=== PATIENT | female | born 1985 | race Caucasian/White ===

== ENCOUNTER 2017-04-29 20:50 | Inpatient (IN) | payer OTHER ==
[~2017-04-29] VITALS: Ht 157.5 cm; Wt 64.9 kg
[2017-04-29] MEDS ORDERED: GLUCAGON 1 MG INJ IV STA (21:13)
[2017-04-29] MEDS ORDERED: SOD CHLORIDE 0.9% 1,000 ML IV STA (21:13)
[2017-04-29 21:40] LABS: BASOPHILS % 0.5 % (0.0-2.0); EOSINOPHILS # 0.2 10^3/ul (0.0-0.5); EOSINOPHILS % 2.4 % (0.0-7.0); HEMATOCRIT 36.1 % (37.0-47.0); HEMOGLOBIN 12.2 g/dl (12.0-16.0); MEAN CORPUSCULAR HEMOGLOBIN 30.7 pg (29.0-33.0); MEAN CORPUSCULAR HGB CONC 33.8 g/dl (32.0-37.0); MEAN CORPUSCULAR VOLUME 90.9 fl (82.0-101.0); MEAN PLATELET VOLUME 10.4 fl (7.4-10.4); MONOCYTE # 0.8 10^3/ul (0.3-0.9); NEUTROPHILS % 46.8 % (39.0-77.0); PLATELET COUNT 376 10^3/UL (140-415); RED BLOOD COUNT 3.97 10^6/ul (4.20-5.40); RED CELL DISTRIBUTION WIDTH 12.9 % (11.5-14.5); WHITE BLOOD COUNT 7.6 10^3/ul (4.8-10.8)
[2017-04-29 22:06] LABS: ALANINE AMINOTRANSFERASE 34 IU/L (13-69); ALBUMIN 4.3 g/dl (3.3-4.9); ALBUMIN/GLOBULIN RATIO 1.38; ALKALINE PHOSPHATASE 51 IU/L (42-121); ANION GAP 14 (8-16); ASPARTATE AMINO TRANSFERASE 23 IU/L (15-46); BILIRUBIN,INDIRECT 0.5 mg/dl (0-1.1); BILIRUBIN,TOTAL 0.5 mg/dl (0.2-1.3); BLOOD UREA NITROGEN 29 mg/dl (7-20); CALCIUM 9.4 mg/dl (8.4-10.2); CARBON DIOXIDE 22 mmol/L (21-31); CHLORIDE 106 mmol/L (97-110); CREATININE 0.87 mg/dl (0.44-1.00); GLUCOSE 116 mg/dl (70-220); POTASSIUM 4.1 mmol/L (3.5-5.1); SODIUM 138 mmol/L (135-144); TOTAL PROTEIN 7.4 g/dl (6.1-8.1)
[2017-04-29 22:10] LABS: ACETAMINOPHEN < 10.0 ug/ml (10.0-30.0); ETHANOL < 10.0 mg/dl; SALICYLATE < 1.0 mg/dl (5.0-30.0)
--- NOTE | 2017-04-29 22:26 | RADRPT ---
PROCEDURE: XR Chest. CLINICAL INDICATION: Altered level of consciousness TECHNIQUE: Single frontal view of the chest was obtained. COMPARISON: None. FINDINGS: The cardiomediastinal silhouette is normal size. Pulmonary vasculature is within normal limits. Th e lungs are clear. No signs of pleural fluid or pneumothorax are seen. The osseous structures and soft tissues are unre markable. IMPRESSION: No evidence for active cardiopulmonary disease. RPTAT: HBST .Juni Saavedra MD, MD Date Time Electronically viewed and signed by .Juni Saavedra MD, on 04/29/2017 22:25 .T/
[2017-04-29 23:00] VITALS: TEMP 98.3
[2017-04-29] MEDS ORDERED: SOD CHLORIDE 0.9% 1,000 ML IV SCH (23:10)
--- NOTE | 2017-04-29 23:10 | ERA ---
ER Documentation Chief Complaint Date/Time DATE: 04/29/17 TIME: 23:01 Chief Complaint Per brother pt disolved 100 BP pilss in water and drank them @ 2000 HPI Patient is a 31-year-old female who says that he dissolved metoprolol into a big glass of water and drink it. She said that she does know how many she took but she says she took "a lot". Brother states it was approximately 100 caps. Patient says she was not suicidal or is homicidal. Patient is not a good historian and only give limited history. She says she took these around 2-1/2 hours ago. But she is not sure. She denies any pain vomiting. Denies any psych history. Patient is making rude comments during my examination and history taking. She has been quite sarcastic ROS All systems reviewed and are negative except as per history of present illness. Medications Home Meds No Active Prescriptions or Reported Meds Allergies Allergies: Coded Allergies: No Known Allergy (Unverified , 04/29/17) PMhx/Soc Medical and Surgical Hx: pt denies Medical Hx, pt denies Surgical Hx Hx Alcohol Use: Yes Hx Substance Use: No Hx Tobacco Use: No Smoking Status: Never smoker FmHx Family History: No coronary disease Physical Exam Vitals Vital Signs Date Time Temp Pulse Resp B/P Pulse Ox O2 Delivery O2 Flow Rate FiO2 04/29/17 21:00 109/69 04/29/17 20:55 98.0 68 24 84/60 99 Room Air 04/29/17 20:54 97.9 69 24 91/50 99 Physical Exam Const: Well-developed, well-nourished Head: Atraumatic, normocephalic Eyes: Normal Conjunctiva, PERRLA, EOMI, normal sclera, no nystagmus ENT: Normal External Ears, Nose and Mouth, moist mucus membranes. Neck: Full range of motion. No meningismus, no lymphadenopathy. Resp: Clear to auscultation bilaterally, no wheezing, rhonchi, rales Cardio: Regular rate and rhythm, heart rate 65, no murmurs, S1 S2 present Abd: Soft, non tender x 4, non distended. Normal bowel sounds, no guarding or rebound, no pulsitile abdominal masses or bruits Skin: No petechiae or rashes, no ecchymosis , no maculopapular rash Back: No midline or flank tenderness Ext: No cyanosis, or edema, FROM x 4, normal inspection, neurovascularly intact x 4 Neur: Awake and alert, STR 5/5 x 4, sensation intact x 4, no focal findings, cerebellum intact Psych: Sarcastic attitude, denies suicidal ideation] Result Diagram: 04/29/17210904/29/172109 Results 24 hrs Laboratory Tests Test 04/29/17 21:10 04/29/17 21:12 White Blood Count 7.610^3/ul Red Blood Count 3.9710^6/ul Hemoglobin 12.2g/dl Hematocrit 36.1% Mean Corpuscular Volume 90.9fl Mean Corpuscular Hemoglobin 30.7pg Mean Corpuscular Hemoglobin Concent 33.8g/dl Red Cell Distribution Width 12.9% Platelet Count 28159^3/UL Mean Platelet Volume 10.4fl Neutrophils % 46.8% Lymphocytes % 39.0% Monocytes % 11.0% Eosinophils % 2.4% Basophils % 0.5% Nucleated Red Blood Cells % 0.0/100WBC Neutrophils # (Manual) 3.610^3/ul Lymphocytes # 3.010^3/ul Monocytes # 0.810^3/ul Eosinophils # 0.210^3/ul Basophils # 0.010^3/ul Nucleated Red Blood Cells # 0.010^3/ul Sodium Level 138mmol/L Potassium Level 4.1mmol/L Chloride Level 106mmol/L Carbon Dioxide Level 22mmol/L Anion Gap 14 Blood Urea Nitrogen 29mg/dl Creatinine 0.87mg/dl Glucose Level 116mg/dl Calcium Level 9.4mg/dl Total Bilirubin 0.5mg/dl Direct Bilirubin 0.00mg/dl Indirect Bilirubin 0.5mg/dl Aspartate Amino Transf (AST/SGOT) 23IU/L Alanine Aminotransferase (ALT/SGPT) 34IU/L Alkaline Phosphatase 51IU/L Total Protein 7.4g/dl Albumin 4.3g/dl Globulin 3.10g/dl Albumin/Globulin Ratio 1.38 Salicylates Level < 1.0mg/dl Acetaminophen Level < 10.0ug/ml Ethyl Alcohol Level < 10.0mg/dl Bedside Glucose 121mg/dL Current Medications Medications (Trade) Dose Ordered Sig/Agata Route PRN Reason Start Time Stop Time Status Last Admin Dose Admin Sodium Chloride (NS) 1,000 ml @ 1,000 mls/hr Q1H STAT IV 04/29/17 21:13 04/29/17 22:12 DC 04/29/17 22:04 Glucagon (Glucagen) 5 mg ONCE STAT IV 04/29/17 21:13 04/29/17 21:17 DC 04/29/17 22:21 Procedures/MDM PROCEDURE: XR Chest. CLINICAL INDICATION: Altered level of consciousness TECHNIQUE: Single frontal view of the chest was obtained. COMPARISON: None. FINDINGS: The cardiomediastinal silhouette is normal size. Pulmonary vasculature is within normal limits. The lungs are clear. No signs of pleural fluid or pneumothorax are seen. The osseous structures and soft tissues are unremarkable. IMPRESSION: No evidence for active cardiopulmonary disease. RPTAT: HBST .Juni Saavedra MD, Date Time Electronically viewed and signed by .Juni Saavedra MD, on 04/29/2017 22:25 .T/ CC: JAROCHO ZULUAGA DO EKG: Rate/Rhythm: Normal sinus rhythm heart rate 69 QRS, ST, QT: NORMAL [place], QRS, QT] Impression: NORMAL EKG Family was sent back home to find the bottles of metoprolol however they are not found. He did fine bottle of metformin, amlodipine which are nearly empty. The patient states she did not take those. The patient will not quantify how many pills she take a multiple questioning. She says I do not know it was a lot. She says she threw the empty bottle in trash but the family cannot find the bottle. The patient was given 5 mg of IV glucagon. Her blood pressure has been running around systolic of 100 and she has had a heart rate in the low to mid 60s. Patient had 2 episodes of vomiting in the ER that is nonbilious and bloody. We will admit the patient for overdose on beta luis armando in case her blood pressure or heart rate drops too low. She will need psych evaluation and likely transfer to a psych hospital once she is stable and clinically cleared.. Departure Diagnosis: Primary Impression: Intentional drug overdose Qualified Code: T50.902A - Intentional drug overdose, initial encounter Additional Impression: Suicide attempt by beta luis armando overdose Qualified Code: T44.7X2A - Suicide attempt by beta-adrenergic antagonist overdose, initial encounter Condition: Stable JAROCHO ZULUAGA DO Apr 29, 2017 23:10
[2017-04-29] MEDS ORDERED: ONDANSETRON 4 MG INJ IV PRN (23:30)
[2017-04-29] MEDS ORDERED: ACETAMINOPHEN 325 MG TAB PO PRN (23:30)
[2017-04-30] VITALS (8 sets, daily range): BP systolic 97–107; BP diastolic 55–60; PULSE 70–78; RESP 16–18; Ht 157.5 cm; Wt 64.9 kg
[2017-04-30] MEDS ORDERED: SOD CHLORIDE 0.9% 1,000 ML IV SCH (01:20)
[2017-04-30] MEDS ORDERED: DOCUSATE SODIUM 100 MG CAP PO PRN (01:30)
[2017-04-30] MEDS ORDERED: ONDANSETRON 4 MG INJ IV PRN (01:30)
[2017-04-30] MEDS ORDERED: BISACODYL (EC) 5 MG TAB PO PRN (01:30)
[2017-04-30] MEDS ORDERED: ACETAMINOPHEN 325 MG TAB PO PRN (01:30)
[2017-04-30] MEDS ORDERED: NACL 0.9% 3 ML SYG IV SCH (01:30)
[2017-04-30 03:46] LABS: CREATINE KINASE 72 IU/L (23-200)
[2017-04-30 03:59] LABS: CK-MB 0.87 ng/ml (0.0-2.4)
[2017-04-30 04:15] LABS: TROPONIN-I < 0.012 ng/ml (0.00-0.12)
[2017-04-30 08:07] LABS: CREATINE KINASE 72 IU/L (23-200)
[2017-04-30 08:27] LABS: TROPONIN-I < 0.012 ng/ml (0.00-0.12)
[2017-04-30] MEDS ORDERED: FAMOTIDINE 20 MG TAB PO SCH (09:00)
--- NOTE | 2017-04-30 09:18 | HP ---
Date/Time of Note Date/Time of Note DATE: 04/30/17 TIME: 09:10 Assessment/Plan VTE Prophylaxis VTE Prophylaxis Intervention: SCD's Lines/Catheters IV [facility] Peripheral IV Assessment/Plan Chief Complaint/Hosp Course This is a 30-year-old female being admitted to the telemetry floor for: #1 beta-luis armando intoxication: Patient was given glucagon 5 mg IV in the ED. At the current time she is sinus rhythm at approximately 7 bpm. Blood pressure is within acceptable values. Will continue to monitor patient's rhythm on telemetry. Further intervention will be implemented as indicated. Will order echocardiogram. Will consult cardiology if indicated as well. #2 behavioral problem: Patient currently is not cooperative during the examination. She is easily arousable however she is very rude and sarcastic in her comments. Will attempt to obtain a better history from her family as her clinical status improves. Patient denies any suicidal or homicidal ideation as per ED physician documentation. Will obtain a psych consult if indicated #3 DVT and GI prophylaxis: SCDs, acid luis armando Further treatment strategy will be implemented as per the clinical course Problems: HPI/ROS Admit Date/Time Admit Date/Time Apr 29, 2017 at 23:12 Hx of Present Illness Chief complaint: Possible beta-luis armando overdose The history was obtained from the ED physician documentation as patient herself is a poor historian and not providing adequate detail and not being cooperative. The patient is a 31-year-old female who says that he dissolved metoprolol into a big glass of water and drink it. She said that she does know how many she took but she says she took "a lot". Brother states it was approximately 100 caps. Patient says she was not suicidal or is homicidal. She says she took these around 2-1/2 hours ago. But she is not sure. She denies any pain vomiting. Denies any psych history. Upon my examination patient was somnolent however she was easily arousable. She however was not cooperative in giving a proper history except for the fact that she smokes. Allergies: Iodine Medications: See KLAUDIA MALDONADO Subjective hx not possible: other (Patient not cooperative though she is easily arousable) PMH/Family/Social Past Medical History Unable to obtain as patient is not cooperative though she is easily arousable Past Surgical History Unable to obtain as patient is not cooperative though she is easily arousable Family History Significant Family History: other (Unable to obtain as patient is not cooperative though she is easily arousable) Social History Unable to obtain as patient is not cooperative though she is easily arousable Alcohol Use: none Smoking Status: Current every day smoker Drug Use: none Exam/Review of Systems Vital Signs Vitals Vital Signs Date Time Temp Pulse Resp B/P Pulse Ox O2 Delivery O2 Flow Rate FiO2 04/30/17 08:29 71 04/30/17 07:57 98.6 16 97/60 98 04/30/17 02:15 Room Air Exam Exam General: Patient is easily arousable, however she is not cooperative in she is very rude unable to adequately assess as patient is uncooperative. She is easily arousable however she is HEENT: Atraumatic, normocephalic. The pupils are equal, round and reactive. Extraocular motor are intact Neck: Supple with full range of motion. No rigidity or meningismus Chest: Nontender Lungs: Clear to auscultation bilaterally no crackles rales or wheezing Heart: Normal S1-S2, Regular rhythm and rate. No overt murmurs appreciated Abdomen: Soft , nontender, nondistended , bowel sounds are present. No guarding no rebound tenderness , No masses or organomegaly. No costovertebral temporal angle mass Extremities: Normal to inspection, no edema no cyanosis Neurologic: Unable to assess as patient is not cooperative, she is easily arousable and alert when awake. Additional Comments nuclear monitoring technician reading shows sinus rhythm at approximately 70 bpm. PROCEDURE: XR Chest. CLINICAL INDICATION: Altered level of consciousness TECHNIQUE: Single frontal view of the chest was obtained. COMPARISON: None. FINDINGS: The cardiomediastinal silhouette is normal size. Pulmonary vasculature is within normal limits. The lungs are clear. No signs of pleural fluid or pneumothorax are seen. The osseous structures and soft tissues are unremarkable. IMPRESSION: No evidence for active cardiopulmonary disease. RPTAT: HBST .Juni Saavedra MD, Date Time Electronically viewed and signed by .Juni Saavedra MD, on 04/29/2017 22:25 .T/ CC: JAROCHO ZULUAGA DO EKG: Rate/Rhythm: Normal sinus rhythm heart rate 69 QRS, ST, QT: NORMAL IN, QRS, QT] As per ED physician documentation Labs Result Diagram: 04/29/17210904/29/172109 Medications Medications Current Medications Sodium Chloride 1,000 ml @ 80 mls/hr [id number] IV Last administered on 04/29/17t 23:48; Admin Dose 80 MLS/HR; Start 04/29/17 at 23:10; Stop 04/30/17 at 11:39 Sodium Chloride (NS) 1,000 ml @ 70 mls/hr [id number] IV ; Start 04/30/17 at 01:20 Ondansetron HCl (Zofran Inj) 4 mg Q6H PRN IV NAUSEA AND/OR VOMITING; Start 04/30 at 01:30 Acetaminophen (Tylenol Tab) 650 mg Q6H PRN PO PAIN LEVEL 1-3 OR FEVER; Start at 01:30 Docusate Sodium (Colace) 100 mg Q12H PRN PO CONSTIPATION; Start 04/30/17 at 01: 30 Bisacodyl (Dulcolax) 5 mg DAILY PRN PO CONSTIPATION; Start 04/30/17 at 01:30 Famotidine (Pepcid) 20 mg Q12 PO ; Start 04/30/17 at 09:00 SALO VILLA Apr 30, 2017 09:18
--- NOTE | 2017-04-30 13:21 | CONS ---
Date/Time of Note Date/Time of Note DATE: 04/30/17 TIME: 13:16 Assessment/Plan Assessment/Plan Additional Assessment/Plan Possible beta-luis armando overdose -Patient's heart rate on telemetry remains in the 60s-70s with no heart block seen. As per ER note, heart rate was in the 60s in the emergency room. I am unsure if she actually took beta-luis armando. We will continue telemetry monitoring. No need for pacemaker at the current time. If heart rhythm remained stable within the next 24 hours, no further inpatient cardiac workup needed Consultation Date/Type/Reason Admit Date/Time Apr 29, 2017 at 23:12 Type of Consultation: cv Reason for Consultation Possible beta-luis armando overdose Hx of Present Illness This is a 31-year-old female with no significant past medical history who has per H&P and medical records, took unknown number of pills yesterday. Patient is not sure what the medication is but thinks possibly metoprolol. On review of medical records, family also not sure and pill bottle was not found. Afterwards, patient with symptoms of nausea and not feeling well and brought to the emergency room. As per the ER records, heart rate was in the 60s and given IV fluids and glucagon. She currently feels much better. Denies any dizziness or lightheadedness, shortness of breath or chest pain. She is not very forthcoming with information, and questions are asked multiple times. 12 point review of systems was performed with all pertinent positives and negatives mentioned above and all else is negative Past Medical History Medical History: no pertinent history Family History Significant Family History: no pertinent family hx Social History Alcohol Use: none Smoking Status: Current every day smoker Drug Use: none Exam/Review of Systems Vital Signs Vitals Vital Signs Date Time Temp Pulse Resp B/P Pulse Ox O2 Delivery O2 Flow Rate FiO2 04/30/17 12:20 77 04/30/17 07:57 98.6 16 97/60 98 04/30/17 02:15 Room Air Exam Not forthcoming with information when questions are asked, no apparent distress Constitutional: alert, oriented Head: normocephalic Respiratory: clear to auscultation, normal air movement Cardiovascular: other (S1-S2 heard), regular rate and rhythm Gastrointestinal: bowel sounds, non-tender, other (No guarding), soft Extremities: other (No edema) Results Result Diagram: 04/29/17210904/29/172109 Results 24 hrs Laboratory Tests Test 04/29/17 21:10 04/29/17 21:12 04/30/17 03:10 04/30/17 07:11 White Blood Count 7.6 Red Blood Count 3.97 L Hemoglobin 12.2 Hematocrit 36.1 L Mean Corpuscular Volume 90.9 Mean Corpuscular Hemoglobin 30.7 Mean Corpuscular Hemoglobin Concent 33.8 Red Cell Distribution Width 12.9 Platelet Count 376 Mean Platelet Volume 10.4 Neutrophils % 46.8 Lymphocytes % 39.0 Monocytes % 11.0 Eosinophils % 2.4 Basophils % 0.5 Nucleated Red Blood Cells % 0.0 Neutrophils # (Manual) 3.6 Lymphocytes # 3.0 H Monocytes # 0.8 Eosinophils # 0.2 Basophils # 0.0 Nucleated Red Blood Cells # 0.0 Sodium Level 138 Potassium Level 4.1 Chloride Level 106 Carbon Dioxide Level 22 Anion Gap 14 Blood Urea Nitrogen 29 H Creatinine 0.87 Glucose Level 116 Calcium Level 9.4 Total Bilirubin 0.5 Direct Bilirubin 0.00 Indirect Bilirubin 0.5 Aspartate Amino Transf (AST/SGOT) 23 Alanine Aminotransferase (ALT/SGPT) 34 Alkaline Phosphatase 51 Total Protein 7.4 Albumin 4.3 Globulin 3.10 Albumin/Globulin Ratio 1.38 Salicylates Level < 1.0 L Acetaminophen Level < 10.0 L Ethyl Alcohol Level < 10.0 Bedside Glucose 121 Creatine Kinase 72 72 Creatine Kinase Index 1.2 1.3 Creatinine Kinase MB (Mass) 0.87 0.90 Troponin I < 0.012 < 0.012 Medications Medications Current Medications Sodium Chloride (NS) 1,000 ml @ 70 mls/hr [id number] IV ; Start 04/30/17 at 01:20 Ondansetron HCl (Zofran Inj) 4 mg Q6H PRN IV NAUSEA AND/OR VOMITING; Start 04/30 at 01:30 Acetaminophen (Tylenol Tab) 650 mg Q6H PRN PO PAIN LEVEL 1-3 OR FEVER; Start at 01:30 Docusate Sodium (Colace) 100 mg Q12H PRN PO CONSTIPATION; Start 04/30/17 at 01: 30 Bisacodyl (Dulcolax) 5 mg DAILY PRN PO CONSTIPATION; Start 9/6/17 at 01:30 Famotidine (Pepcid) 20 mg Q12 PO Last administered on 04/30/17t 09:37; Admin Dose 20 MG; Start 04/30/17 at 09:00 Procedures Procedures ECG done last night demonstrated sinus rhythm at 69 bpm, normal QRS duration, no significant ischemic ST abnormalities Jacek Nunez DO Apr 30, 2017 13:21
--- NOTE | 2017-04-30 15:30 | RADRPT ---
Echocardiogram Report Patient Name: SYLVIA DEXTER Gender: Female Date: 1985 Study Date: 30-Apr-2017 Media Analyst: Otoniel Malave [facility] Location: 5539 Ref. Physician: SALO VILLA Quality: Good Procedures: Transthoracic echocardiogram with complete 2D, M-Mode, and doppler examination. Indications: suspect beta luis armando overdose. 2D/M Mode Doppler Measurement Value Normal Ranges Measurement Value Normal Ranges LVIDd 2D 4.0 3.5 - 5.6 cm AV Peak Naeem 1.2 m/sec LVIDs 2D 2.5 2.1 - 4.1 cm AV Peak PG 6.2 mmHg LVPWd 2D 0.9 0.6 - 1.1 cm LVOT Peak Naeem 0.7 m/sec IVSd 2D 0.9 0.6 - 1.1 cm LVOT Peak PG 1.9 mmHg AoR Diam 2D 2.4 2.0 - 3.7 cm MV E Peak Naeem 0.7 m/sec EDV 2D 71.5 cm3 MV A Peak Naeem 0.4 m/sec ESV 2D 15.1 cm3 MV E/A 1.7 LA Dimen 2D 3.1 2.3 - 4.0 cm MV Decel Time 192 msec MV Decel [place] 4 MV E/A 1.7 TR Peak Naeem 1.8 m/sec TR Peak PG 12.7 mmHg RVSP 16.0 mmHg Findings Left Ventricle: Normal left ventricular systolic function. Normal left ventricular cavity size. Normal left ventricular wall thickness. Ejection fraction is visually estimated at 60 %. Tissue Doppler/Mitral Doppler indices are within normal limits. Right Ventricle: Normal right ventricular size. Normal right ventricular systolic function. Left Atrium: The left atrium is normal in size. Right Atrium: The right atrium is normal in size. Mitral Valve: Mitral valve leaflets appear mildly thickened. Mild mitral annular calcification. Mild mitral valve regurgitation. Aortic Valve: Normal appearance of the aortic valve. No significant aortic stenosis or insufficiency. Tricuspid Valve: Normal appearance of the tricuspid valve. Estimated peak PA systolic pressure 16 mmHg. There is mild tricuspid regurgitation. Pulmonic Valve: Normal pulmonic valve appearance. There is trace pulmonic regurgitation. Pericardium: Normal pericardium with no significant pericardial effusion. Aorta: Normal aortic root. IVC: Normal size and normal respiratory collapse consistent with normal right atrial pressure. Conclusions 1.Normal left ventricular systolic function. Normal left ventricular cavity size. Normal left ventricular wall thickness. Ejection fraction is visually estimated at 60 %. Tissue Doppler/Mitral Doppler indices are within normal limits. 2.Normal right ventricular size. Normal right ventricular systolic function. 3.The left atrium is normal in size. 4.The right atrium is normal in size. 5.Mild mitral valve regurgitation. 6.No significant aortic stenosis or insufficiency. 7.Estimated peak PA systolic pressure 16 mmHg. There is mild tricuspid regurgitation. 8.Normal pericardium with no significant pericardial effusion. Electronically Signed By: Jacek Nunez 30-Apr-2017 15:28:57 -0700 Patient Name: SYLVIA DEXTER Study Date: 30-Apr-2017 [id number]
--- NOTE | 2017-04-30 16:44 | QN ---
Documentation Comment S: Patient seen and examined this am. When questioned she was very aloof during the conversation. Denies SI as reason took medication. States she does not know why she took her mother medication but did not plan on taking it again. Denies any chest discomfort, shortness of breath, nausea, vomiting, or abdominal issues. HR has remained stable. O: VSS General- NAD, awake and alert CVS- regular rate and rhythm, no murmurs Lungs- CTA b/l. no wheezes Abd- soft, nontender, nondistended Ext- moving all extremities, no cyanosis, edema, or clubbing A/P 1. Metoprolol overdose? - Cardiology input appreciated and will continue monitoring for 24 hours total - No need for pacer at this time - HR has been in the 70s - If remains stable will d/c tmrw LUIS Desai MD Apr 30, 2017 16:43
--- NOTE | 2017-04-30 17:58 | DS ---
Date/Time of Note Date/Time of Note DATE: 04/30/17 TIME: 17:52 Discharge Summary Admission/Discharge Info Admit Date/Time Apr 29, 2017 at 23:12 Discharge Date/Time Patient eloped on Apr 30 at 1610 Discharge Diagnosis Medication overdose, ?Beta luis armando Patient Condition: Good Consults Cardiology Hx of Present Illness Chief complaint: Possible beta-luis armando overdose The history was obtained from the ED physician documentation as patient herself is a poor historian and not providing adequate detail and not being cooperative. The patient is a 31-year-old female who says that he dissolved metoprolol into a big glass of water and drink it. She said that she does know how many she took but she says she took "a lot". Brother states it was approximately 100 caps. Patient says she was not suicidal or is homicidal. She says she took these around 2-1/2 hours ago. But she is not sure. She denies any pain vomiting. Denies any psych history. Upon my examination patient was somnolent however she was easily arousable. She however was not cooperative in giving a proper history except for the fact that she smokes. Allergies: Iodine Medications: See [facility] This is a 31-year-old female with no significant past medical history who has per H&P and medical records, took unknown number of pills yesterday. Patient is not sure what the medication is but thinks possibly metoprolol. On review of medical records, family also not sure and pill bottle was not found. Afterwards, patient with symptoms of nausea and not feeling well and brought to the emergency room. As per the ER records, heart rate was in the 60s and given IV fluids and glucagon. She currently feels much better. Denies any dizziness or lightheadedness, shortness of breath or chest pain. She is not very forthcoming with information, and questions are asked multiple times. When interviewed later in the day patient admits to taking mothers metoprolol but unsure why she did. She denies any suicidal ideations and does not plan to take the medication again. Patient was evaluated by Cardiology who did not believe patient needed any pacemaker intervention since heart rate remained stable in the 70s throughout the day. Patient was able to tolerate diet and denied any chest pain, palpitations, LOC, shortness of breath, dizziness, or abdominal issues. She later left the floor and nurse called stating unsure where the patient went and called security as well as nursing grounds supervisor. The patient later returned and was told since she had eloped she would need to go to the ED to get readmitted. Patient refused to leave her room but was informed of the policy and told it was recommended to go to the ED. She states she felt well enough to go home but if she became symptomatic she would return to the ED. No prescriptions or instructions were given to the patient. Home Meds No Active Prescriptions or Reported Meds Follow-up Plan Patient instructed to go to the ED but refused and advised to go to the ED then if she was experiencing palpitations, LOC, chest pain, shortness of breath, or dizziness. Primary Care Provider Care Physician No Primary Time spent on discharge: < 30 minutes Pending Labs Laboratory Tests Test 04/29/17 21:10 04/29/17 21:12 04/30/17 03:10 04/30/17 07:11 White Blood Count 7.610^3/ul (4.8-10.8) Red Blood Count 3.9710^6/ul (4.20-5.40) Hemoglobin 12.2g/dl (12.0-16.0) Hematocrit 36.1% (37.0-47.0) Mean Corpuscular Volume 90.9fl (82.0-101.0) Mean Corpuscular Hemoglobin 30.7pg (29.0-33.0) Mean Corpuscular Hemoglobin Concent 33.8g/dl (32.0-37.0) Red Cell Distribution Width 12.9% (11.5-14.5) Platelet Count 40834^3/UL (140-415) Mean Platelet Volume 10.4fl (7.4-10.4) Neutrophils % 46.8% (39.0-77.0) Lymphocytes % 39.0% (15.0-51.0) Monocytes % 11.0% (0.0-11.0) Eosinophils % 2.4% (0.0-7.0) Basophils % 0.5% (0.0-2.0) Nucleated Red Blood Cells % 0.0/100WBC (0.0-0.0) Neutrophils # (Manual) 3.610^3/ul (1.7-7.5) Lymphocytes # 3.010^3/ul (0.8-2.9) Monocytes # 0.810^3/ul (0.3-0.9) Eosinophils # 0.210^3/ul (0.0-0.5) Basophils # 0.010^3/ul (0.0-0.1) Nucleated Red Blood Cells # 0.010^3/ul (0.0-0.0) Sodium Level 138mmol/L (135-144) Potassium Level 4.1mmol/L (3.5-5.1) Chloride Level 106mmol/L (97-110) Carbon Dioxide Level 22mmol/L (21-31) Anion Gap 14 (8-16) Blood Urea Nitrogen 29mg/dl (7-20) Creatinine 0.87mg/dl (0.44-1.00) Glucose Level 116mg/dl (70-220) Calcium Level 9.4mg/dl (8.4-10.2) Total Bilirubin 0.5mg/dl (0.2-1.3) Direct Bilirubin 0.00mg/dl (0.00-0.20) Indirect Bilirubin 0.5mg/dl (0-1.1) Aspartate Amino Transf (AST/SGOT) 23IU/L (15-46) Alanine Aminotransferase (ALT/SGPT) 34IU/L (13-69) Alkaline Phosphatase 51IU/L (42-121) Total Protein 7.4g/dl (6.1-8.1) Albumin 4.3g/dl (3.3-4.9) Globulin 3.10g/dl (1.3-3.2) Albumin/Globulin Ratio 1.38 Salicylates Level < 1.0mg/dl (5.0-30.0) Acetaminophen Level < 10.0ug/ml (10.0-30.0) Ethyl Alcohol Level < 10.0mg/dl Bedside Glucose 121mg/dL (70-220) Creatine Kinase 72IU/L (23-200) 72IU/L (23-200) Creatine Kinase Index 1.2 1.3 Creatinine Kinase MB (Mass) 0.87ng/ml (0.0-2.4) 0.90ng/ml (0.0-2.4) Troponin I < 0.012ng/ml (0.00-0.12) < 0.012ng/ml (0.00-0.12) LUIS TO MD Apr 30, 2017 17:58
== END 2017-04-30 17:45 | disposition left against medical advice (07) | DRG 918 ==
LOC: E/R 20:50 → MS4 23:12
PROVIDERS: ADMIT Family Medicine; ATTEND Family Medicine
DX: T44.7X2A Poisoning by beta-adrenoreceptor antagonists, intentional self-harm, initial encounter (principal); F17.210 Nicotine dependence, cigarettes, uncomplicated
CPT/HCPCS: 36415; 71010; 80053; 80306; 82550; 82553; 82962; 84484; 85025; 93005; 93306; 96374; J1610; J7030